=== PATIENT | female | born 1975 | race Caucasian/White ===

== ENCOUNTER 2017-10-01 00:24 | Emergency (ER) | payer BC ==
[~2017-10-01] VITALS: Ht 149.9 cm; Wt 65.0 kg
[~2017-10-01 00:24] MED LIST: ADAL40PE SQ; AMIT50TA PO; FOLI-17 PO; METH2.5T PO; NAPR-856 PO; OMEP10CA4 PO; PANT40TA3 PO; PRED50TA PO; RANI300T PO
[2017-10-01 01:12] VITALS: BP 130/86
[2017-10-01 01:18] LABS: BASOPHILS # (AUTO) 0.04 x10^3/uL (0-0.1); BASOPHILS % (AUTO) 0 % (0-1); EOSINOPHILS # (AUTO) 0.02 x10^3/uL (0-0.4); EOSINOPHILS % (AUTO) 0 % (1-7); LYMPHOCYTES # (AUTO) 4.12 x10^3/uL (1-3.4); LYMPHOCYTES % (AUTO) 37 % (22-44); MD NO; MEAN CORPUSCULAR HEMOGLOBIN 31.6 pg (27.0-34.8); MEAN CORPUSCULAR HGB CONC 34.1 g/dL (32.4-35.8); MEAN CORPUSCULAR VOLUME 92.7 fL (80-100); MEAN PLATELET VOLUME 7.9 fL (7.4-10.4); MONOCYTES # (AUTO) 0.98 x10^3/uL (0.2-0.8); MONOCYTES % (AUTO) 9 % (2-9); NEUTROPHILS # (AUTO) 6.05 x10^3/uL (1.8-6.8); NEUTROPHILS % (AUTO) 54 % (42-75); PLATELET COUNT 328 x10^3/uL (130-400); RED BLOOD COUNT 3.84 x10^6/uL (3.82-5.3); RED CELL DISTRIBUTION WIDTH 14.4 % (9.6-15.2)
[2017-10-01] MEDS ORDERED: DULO30CA43 PO (01:23)
[2017-10-01 01:24] LABS: MICROSCOPIC INDICATED
[2017-10-01] MEDS ORDERED: CELE100C PO (01:24)
[2017-10-01 01:25] LABS: CULTURE INDICATED? YES
[2017-10-01 01:29] LABS: ALANINE AMINOTRANSFERASE 56 U/L (12-78); ALBUMIN 3.8 g/dL (3.4-5.0); ANION GAP 9 mmol/L (5-15); CALCIUM 8.9 mg/dL (8.5-10.1); CHLORIDE 111 mmol/L (98-107)
[2017-10-01] MEDS ORDERED: HYDROcodone/APAP 5/325 TABLET PO ONE (01:30)
[2017-10-01] MEDS ORDERED: HYDROcodone/APAP 5/325 TABLET ONE (01:30)
[2017-10-01] MEDS ORDERED: ONDANSETRON ODT 4 MG ONE (01:30)
[2017-10-01] MEDS ORDERED: ONDANSETRON ODT 4 MG PO ONE (01:30)
[2017-10-01 01:33] LABS: ALKALINE PHOSPHATASE 83 U/L (45-117); BILIRUBIN,TOTAL 0.3 mg/dL (0.2-1.0); TOTAL PROTEIN 7.3 g/dL (6.4-8.2)
== END 2017-10-01 03:22 | disposition home or self-care (01) ==
LOC: ED 02:50
DX: N30.90 Cystitis, unspecified without hematuria (principal); E78.00 Pure hypercholesterolemia, unspecified; M19.90 Unspecified osteoarthritis, unspecified site; M79.7 Fibromyalgia; Z88.0 Allergy status to penicillin; Z90.710 Acquired absence of both cervix and uterus
CPT/HCPCS: 36415; 76700; 80053; 81001; 83690; 84703; 85025; 87086; 93005; 99285; Q0162

== ENCOUNTER 2017-10-05 11:36 | Emergency (ER) | payer BC ==
[~2017-10-05] VITALS: Ht 149.9 cm; Wt 60.0 kg
[~2017-10-05 11:36] MED LIST changes: +CELE100C PO; +DULO30CA43 PO
[2017-10-05] MEDS ORDERED: DIAZEPAM 5 MG TABLET PO STA (13:31)
[2017-10-05] MEDS ORDERED: KETOROLAC 30 MG/1 ML ONE (13:38)
[2017-10-05] MEDS ORDERED: DIAZEPAM 5 MG TABLET ONE (13:38)
[2017-10-05] MEDS ORDERED: KETOROLAC 30 MG/1 ML IM ONE (14:00)
[2017-10-05 14:34] VITALS: BP 118/78
== END 2017-10-05 15:14 | disposition home or self-care (01) ==
LOC: ED 15:00
DX: G89.29 Other chronic pain (principal); M54.5 Low back pain; E78.00 Pure hypercholesterolemia, unspecified
CPT/HCPCS: 96372; 99283; J1885

== ENCOUNTER → 2017-10-21 | Outpatient (CLI) | payer BC | END | disposition home or self-care (01) | LOC: CFH 16:02 | PROVIDERS: ATTEND Nurse Practitioner | DX: M51.17 Intervertebral disc disorders with radiculopathy, lumbosacral region (principal); M51.15 Intervertebral disc disorders with radiculopathy, thoracolumbar region | CPT/HCPCS: 72148 ==

== ENCOUNTER 2017-11-07 20:49 | Emergency (ER) | payer BC ==
[~2017-11-07] VITALS: Ht 149.9 cm; Wt 65.1 kg
[2017-11-07] MEDS ORDERED: KETAMINE 50 MG/ML, 10ML ONE (21:47)
[2017-11-07] MEDS ORDERED: KETAMINE 100 MG/ML, 5ML IV ONE (22:00)
[2017-11-07] MEDS ORDERED: LORazepam 2 MG/ML, 1ML ONE (22:09)
[2017-11-07] MEDS ORDERED: LORazepam 2 MG/ML, 1ML IVPush ONE (22:30)
[2017-11-08 00:20] VITALS: BP 96/52
== END 2017-11-08 00:26 | disposition home or self-care (01) ==
LOC: ED 23:06
DX: M51.36 Other intervertebral disc degeneration, lumbar region (principal); M51.26 Other intervertebral disc displacement, lumbar region
CPT/HCPCS: 96374; 96375; 99284; J2060

== ENCOUNTER 2018-01-06 10:14 | Emergency (ER) | payer BC ==
[~2018-01-06] VITALS: Ht 157.5 cm; Wt 65.3 kg
[2018-01-06] MEDS ORDERED: MAALOX/HYOSCYAMINE/LIDOCAINE 45 ML BTL ONE (10:44)
[2018-01-06 10:56] LABS: BASOPHILS # (AUTO) 0.05 x10^3/uL (0-0.1); BASOPHILS % (AUTO) 0 % (0-1); EOSINOPHILS # (AUTO) 0.01 x10^3/uL (0-0.4); EOSINOPHILS % (AUTO) 0 % (1-7); LYMPHOCYTES # (AUTO) 3.51 x10^3/uL (1-3.4); LYMPHOCYTES % (AUTO) 31 % (22-44); MD NO; MEAN CORPUSCULAR HEMOGLOBIN 31.3 pg (27.0-34.8); MEAN CORPUSCULAR HGB CONC 34.2 g/dL (32.4-35.8); MEAN CORPUSCULAR VOLUME 91.6 fL (80-100); MEAN PLATELET VOLUME 7.8 fL (7.4-10.4); MONOCYTES # (AUTO) 0.65 x10^3/uL (0.2-0.8); MONOCYTES % (AUTO) 6 % (2-9); NEUTROPHILS # (AUTO) 7.29 x10^3/uL (1.8-6.8); NEUTROPHILS % (AUTO) 63 % (42-75); PLATELET COUNT 342 x10^3/uL (130-400); RED BLOOD COUNT 3.98 x10^6/uL (3.82-5.3); RED CELL DISTRIBUTION WIDTH 14.3 % (9.6-15.2)
[2018-01-06] MEDS ORDERED: MAALOX/HYOSCYAMINE/LIDOCAINE 45 ML BTL PO ONE (11:00)
[2018-01-06 11:05] LABS: ALANINE AMINOTRANSFERASE 52 U/L (12-78); ALBUMIN 3.8 g/dL (3.4-5.0); ANION GAP 8 mmol/L (5-15); CALCIUM 8.9 mg/dL (8.5-10.1); CHLORIDE 108 mmol/L (98-107); CREATININE 0.66 mg/dL (0.55-1.02)
[2018-01-06 11:10] LABS: ALKALINE PHOSPHATASE 69 U/L (45-117); BILIRUBIN,TOTAL 0.3 mg/dL (0.2-1.0); TOTAL PROTEIN 7.5 g/dL (6.4-8.2)
[2018-01-06 11:57] VITALS: BP 124/83
== END 2018-01-06 12:46 | disposition home or self-care (01) ==
LOC: ED 12:41
DX: K21.0 Gastro-esophageal reflux disease with esophagitis (principal); M06.9 Rheumatoid arthritis, unspecified; E78.00 Pure hypercholesterolemia, unspecified
CPT/HCPCS: 36415; 76700; 80053; 83690; 84703; 85025; 93005; 99285

== ENCOUNTER 2018-02-16 11:55 | Emergency (ER) | payer BC ==
[~2018-02-16] VITALS: Ht 149.9 cm; Wt 64.0 kg
[2018-02-16 13:40] VITALS: BP 110/76
== END 2018-02-16 13:44 | disposition home or self-care (01) ==
LOC: ED 12:15
DX: G89.11 Acute pain due to trauma (principal); M54.5 Low back pain; M25.561 Pain in right knee; M19.90 Unspecified osteoarthritis, unspecified site; Z90.710 Acquired absence of both cervix and uterus; W07.XXXA Fall from chair, initial encounter; Y93.89 Activity, other specified; Y92.009 Unspecified place in unspecified non-institutional (private) residence as the place of occurrence of the external cause; Y99.8 Other external cause status
CPT/HCPCS: 72190; 99284

== ENCOUNTER → 2018-02-21 | Outpatient (CLI) | payer BC | END | disposition home or self-care (01) | LOC: CFH 09:21 | PROVIDERS: ATTEND Family Medicine | DX: Z12.31 Encounter for screening mammogram for malignant neoplasm of breast (principal); M85.89 Other specified disorders of bone density and structure, multiple sites; Z79.899 Other long term (current) drug therapy; Z88.1 Allergy status to other antibiotic agents | CPT/HCPCS: 77080; 77067 ==

== ENCOUNTER → 2020-03-25 | Outpatient (CLI) | payer BC ==
[~2020-03-25] MED LIST changes: -DULO30CA43 PO; +DULO30CA44 PO; -OMEP10CA4 PO; +OMEP10CA5 PO
== END | disposition home or self-care (01) ==
LOC: CFH 13:43
PROVIDERS: ATTEND Family Medicine
DX: Z12.31 Encounter for screening mammogram for malignant neoplasm of breast (principal)
CPT/HCPCS: 77067